=== PATIENT | male | born 1980 | race Caucasian/White ===

== ENCOUNTER 2018-12-12 11:17 | Emergency (ER) | payer MEDICAID ==
[~2018-12-12] VITALS: Ht 188 cm; Wt 107.0 kg
[~2018-12-12 11:17] MED LIST: HYDR-5123 PO
[2018-12-12 11:44] VITALS: BP 135/85
--- NOTE | 2018-12-12 11:49 | NUR ---
VSS; PT AMBULATED TO LOBBY
--- NOTE | 2018-12-12 12:33 | NUR ---
PT BACK FROM XRAY
[2018-12-12] MEDS ORDERED: KETOROLAC 60 MG/2 ML VIAL IM ONE (12:55)
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
[2018-12-12 13:58] VITALS: BP 132/80
== END 2018-12-12 13:58 | disposition home or self-care (01) ==
LOC: MED 11:17
DX: S13.4XXA Sprain of ligaments of cervical spine, initial encounter (principal); R51 Headache; R42 Dizziness and giddiness; Z79.899 Other long term (current) drug therapy; V89.2XXA Person injured in unspecified motor-vehicle accident, traffic, initial encounter; Y93.89 Activity, other specified; Y92.89 Other specified places as the place of occurrence of the external cause; Y99.8 Other external cause status
CPT/HCPCS: 72040; 99283; J1885